=== PATIENT | male | born 1970 | race African-American/Black ===

== ENCOUNTER 2018-02-15 08:17 | Inpatient (IN) | payer OTHER ==
[2018-02-15 08:59] LABS: VENOUS BASE EXCESS -16.2 (-2.0-2.0); VENOUS HCO3 9.1 MEQ/L (23.0-27.0); VENOUS O2 SATURATION 98.2 % (60.0-80.0); VENOUS PARTIAL PRESSURE CO2 22.8 mmHg (38.0-50.0); VENOUS PARTIAL PRESSURE O2 129.9 mmHg (30.0-50.0); VENOUS PH 7.219 UNITS (7.330-7.430); VENOUS STANDARD HCO3 12.9 MEQ/L; VENOUS TOTAL CO2 9.8 MEQ/L (24.0-28.0)
[2018-02-15 09:05] LABS: BASO # 0.1 10^3/uL (0.0-0.2); BASO % 0.3 % (0.0-1.0); HEMATOCRIT 52.8 % (42.0-52.0); HEMOGLOBIN 17.5 g/dl (13.5-17.5); IMMATURE GRANULOCYTE % 1.2 % (0-3.0); LYMPH # 2.2 10^3/uL (1.5-4.5); LYMPH % 9.9 % (24.0-44.0); MEAN CORPUSCULAR HEMOGLOBIN 29.9 pg (27.0-33.0); MEAN CORPUSCULAR HGB CONC 33.1 g/dl (32.0-36.5); MEAN CORPUSCULAR VOLUME 90.1 fl (80.0-96.0); MONO # 1.3 10^3/uL (0.0-0.8); NEUTROPHILS % 82.6 % (36.0-66.0); PLATELET COUNT, AUTOMATED 341 10^3/uL (150-450); RED BLOOD COUNT 5.86 10^6/uL (4.30-6.10); RED CELL DISTRIBUTION WIDTH 13.7 % (11.5-14.5); WHITE BLOOD COUNT 21.8 10^3/uL (4.0-10.0)
[2018-02-15 09:19] LABS: ESTIMATED AVERAGE GLUCOSE 306 MG/DL (60-110); HEMOGLOBIN A1c 12.3 %
[2018-02-15 09:48] LABS: ANION GAP 27 MEQ/L (8-16); BLOOD UREA NITROGEN 30 MG/DL (7-18); CALCIUM LEVEL 10.6 MG/DL (8.5-10.1); CARBON DIOXIDE LEVEL 10 MEQ/L (21-32); CHLORIDE LEVEL 103 MEQ/L (98-107); CREATININE FOR GFR 1.97 MG/DL (0.70-1.30); GLOMERULAR FILTRATION RATE 39.2 (>60); POTASSIUM SERUM 5.3 MEQ/L (3.5-5.1); SODIUM LEVEL 140 MEQ/L (136-145)
[2018-02-15 09:54] LABS: GLUCOSE, FASTING 646 MG/DL (70-100)
[2018-02-15] MEDS ORDERED: INSULIN IV RATE CHANGE DOCUMENTATION ML/HR XX (10:15)
[2018-02-15] MEDS: NS 1,000 ML IV (10:33)
[2018-02-15] MEDS: HumuLIN R (REGULAR) INSULIN (NovoLIN R) **100U/ML** PER UNIT IV (10:35)
[2018-02-15] MEDS: INSULIN HUMAN REGULAR 100 UNITS in NS 99 ML IV ×2 (10:36→12:56)
[2018-02-15 11:29] LABS: ALBUMIN 4.1 GM/DL (3.2-5.2); ALBUMIN/GLOBULIN RATIO 0.85 (1.00-1.93); ALKALINE PHOSPHATASE 148 U/L (45-117); ALT/SGPT 21 U/L (12-78); AST/SGOT 8 U/L (7-37); BILIRUBIN,DIRECT 0.1 MG/DL (0.0-0.2); BILIRUBIN,TOTAL 0.5 MG/DL (0.2-1.0); TOTAL PROTEIN 8.9 GM/DL (6.4-8.2)
[2018-02-15] MEDS ORDERED: ACETAMINOPHEN TAB 650MG DOSE (2X325MG) PO (11:45)
[2018-02-15] MEDS ORDERED: MORPHINE 4 MG/ML 1ML VIAL/SYRINGE (J2270) IV (11:45)
[2018-02-15 11:48] LABS: BEDSIDE GLUCOSE 518 MG/DL (70-105)
[2018-02-15 12:28] LABS: BEDSIDE GLUCOSE > 600 MG/DL (70-105)
[2018-02-15 12:43] LABS: BEDSIDE GLUCOSE 447 MG/DL (70-105)
[2018-02-15 12:48] LABS: CK-MB VALUE MASS < 1.0 NG/ML (<3.6); CPK CREATINE PHOSPHOKINASE 122 U/L (39-308); MAGNESIUM LEVEL 3.4 MG/DL (1.8-2.4); MB/CK RELATIVE INDEX 0.82 (< OR =4); TROPONIN I < 0.02 NG/ML (< 0.10)
[2018-02-15] MEDS: INSULIN IV RATE CHANGE DOCUMENTATION ML/HR XX ×4 (12:57→22:01)
[2018-02-15] MEDS: NS 0.45% 1,000 ML IV ×3 (13:02→23:00)
[2018-02-15 13:53] LABS: BEDSIDE GLUCOSE 428 MG/DL (70-105)
[2018-02-15 14:16] LABS: BASO # 0.1 10^3/uL (0.0-0.2); BASO % 0.3 % (0.0-1.0); HEMATOCRIT 54.6 % (42.0-52.0); HEMOGLOBIN 18.1 g/dl (13.5-17.5); IMMATURE GRANULOCYTE % 1.4 % (0-3.0); LYMPH # 3.3 10^3/uL (1.5-4.5); LYMPH % 12.8 % (24.0-44.0); MEAN CORPUSCULAR HEMOGLOBIN 29.8 pg (27.0-33.0); MEAN CORPUSCULAR HGB CONC 33.2 g/dl (32.0-36.5); MEAN CORPUSCULAR VOLUME 89.8 fl (80.0-96.0); MONO % 9.1 % (0.0-5.0); NEUTROPHILS # 19.4 10^3/uL (1.8-7.7); NEUTROPHILS % 76.4 % (36.0-66.0); PLATELET COUNT, AUTOMATED 316 10^3/uL (150-450); RED BLOOD COUNT 6.08 10^6/uL (4.30-6.10); RED CELL DISTRIBUTION WIDTH 13.9 % (11.5-14.5); WHITE BLOOD COUNT 25.4 10^3/uL (4.0-10.0)
[2018-02-15 14:40] LABS: MONO # 2.3 10^3/uL (0.0-0.8)
[2018-02-15 14:41] LABS: POSITIVE DIFF POS FLAG
[2018-02-15 15:03] LABS: KETONE, URINE AUTO RFX 2+ mg/dL (NEGATIVE); LEUKOCYTE ESTERASE UR AUTO RFX NEGATIVE (NEGATIVE); NITRITE, URINE AUTO RFX NEGATIVE (NEGATIVE); RBC, URINE AUTO RFX 2 /HPF (0-3); SQUAM EPITHELIAL CELL UR AURFX 0 /HPF (0-6); WBC, URINE AUTO RFX 1 /HPF (0-3)
[2018-02-15 15:04] LABS: ALBUMIN 3.7 GM/DL (3.2-5.2); ALBUMIN/GLOBULIN RATIO 0.76 (1.00-1.93); ALKALINE PHOSPHATASE 144 U/L (45-117); ALT/SGPT 18 U/L (12-78); ANION GAP 19 MEQ/L (8-16); AST/SGOT 6 U/L (7-37); BILIRUBIN,TOTAL 0.5 MG/DL (0.2-1.0); BLOOD UREA NITROGEN 33 MG/DL (7-18); CALCIUM LEVEL 9.9 MG/DL (8.5-10.1); CARBON DIOXIDE LEVEL 15 MEQ/L (21-32); CHLORIDE LEVEL 113 MEQ/L (98-107); CREATININE FOR GFR 1.79 MG/DL (0.70-1.30); GLUCOSE, FASTING 404 MG/DL (70-100); POTASSIUM SERUM 4.4 MEQ/L (3.5-5.1); SODIUM LEVEL 147 MEQ/L (136-145); TOTAL PROTEIN 8.6 GM/DL (6.4-8.2)
[2018-02-15 15:05] LABS: ACETONE/KETONE > 46.00 MG/DL (<2.81)
[2018-02-15] MEDS: HEPARIN SOD (PORCINE) 5000 UNITS/ML VIAL SC ×2 (15:09→20:22)
[2018-02-15] MEDS: PANTOPRAZOLE 40MG INJ (PROTONIX) (C9113) IV (15:14)
[2018-02-15 15:42] LABS: ANION GAP 20 MEQ/L (8-16); BLOOD UREA NITROGEN 32 MG/DL (7-18); CALCIUM LEVEL 9.5 MG/DL (8.5-10.1); CARBON DIOXIDE LEVEL 14 MEQ/L (21-32); CHLORIDE LEVEL 117 MEQ/L (98-107); CREATININE FOR GFR 1.55 MG/DL (0.70-1.30); GLOMERULAR FILTRATION RATE > 60.0 (>60); GLUCOSE, FASTING 359 MG/DL (70-100); POTASSIUM SERUM 4.2 MEQ/L (3.5-5.1); SODIUM LEVEL 151 MEQ/L (136-145)
[2018-02-15 15:43] LABS: C REACTIVE PROTEIN QUANTITATIV 0.46 MG/DL (0.00-0.30)
[2018-02-15 16:05] LABS: ERYTHROCYTE SEDIMENTATION RATE 8 mm/hr (0-15)
[2018-02-15 17:20] LABS: VENOUS BASE EXCESS -9.9 (-2.0-2.0); VENOUS HCO3 18.2 MEQ/L (23.0-27.0); VENOUS O2 SATURATION 88.1 % (60.0-80.0); VENOUS PARTIAL PRESSURE CO2 47.3 mmHg (38.0-50.0); VENOUS PARTIAL PRESSURE O2 62.4 mmHg (30.0-50.0); VENOUS PH 7.202 UNITS (7.330-7.430); VENOUS STANDARD HCO3 16.6 MEQ/L; VENOUS TOTAL CO2 19.6 MEQ/L (24.0-28.0)
[2018-02-15 17:36] LABS: ANION GAP 15 MEQ/L (8-16); BLOOD UREA NITROGEN 30 MG/DL (7-18); CALCIUM LEVEL 9.5 MG/DL (8.5-10.1); CARBON DIOXIDE LEVEL 17 MEQ/L (21-32); CHLORIDE LEVEL 116 MEQ/L (98-107); CREATININE FOR GFR 1.76 MG/DL (0.70-1.30); GLOMERULAR FILTRATION RATE 54.1 (>60); GLUCOSE, FASTING 328 MG/DL (70-100); POTASSIUM SERUM 4.7 MEQ/L (3.5-5.1); SODIUM LEVEL 148 MEQ/L (136-145)
[2018-02-15] MEDS: KCL 20MEQ IN 0.45NS 1000ML 1,000 ML IV ×2 (18:53→21:20)
[2018-02-15 19:49] LABS: ANION GAP 17 MEQ/L (8-16); BLOOD UREA NITROGEN 29 MG/DL (7-18); CALCIUM LEVEL 9.7 MG/DL (8.5-10.1); CARBON DIOXIDE LEVEL 17 MEQ/L (21-32); CHLORIDE LEVEL 113 MEQ/L (98-107); CREATININE FOR GFR 1.71 MG/DL (0.70-1.30); GLOMERULAR FILTRATION RATE 55.9 (>60); GLUCOSE, FASTING 313 MG/DL (70-100); POTASSIUM SERUM 4.3 MEQ/L (3.5-5.1); SODIUM LEVEL 147 MEQ/L (136-145)
[2018-02-15] MEDS: ONDANSETRON 4MG/2ML VIAL (J2405) IV (20:18)
[2018-02-15 21:48] LABS: ANION GAP 11 MEQ/L (8-16); BLOOD UREA NITROGEN 28 MG/DL (7-18); CALCIUM LEVEL 9.1 MG/DL (8.5-10.1); CARBON DIOXIDE LEVEL 16 MEQ/L (21-32); CHLORIDE LEVEL 117 MEQ/L (98-107); CREATININE FOR GFR 1.51 MG/DL (0.70-1.30); GLOMERULAR FILTRATION RATE > 60.0 (>60); GLUCOSE, FASTING 293 MG/DL (70-100); POTASSIUM SERUM 5.5 MEQ/L (3.5-5.1); SODIUM LEVEL 144 MEQ/L (136-145)
[2018-02-15 21:54] LABS: BEDSIDE GLUCOSE 296 MG/DL (70-105)
[2018-02-15 21:54] LABS: BEDSIDE GLUCOSE 296 MG/DL (70-105)
[2018-02-16 00:05] LABS: ANION GAP 14 MEQ/L (8-16); BLOOD UREA NITROGEN 29 MG/DL (7-18); CALCIUM LEVEL 9.5 MG/DL (8.5-10.1); CARBON DIOXIDE LEVEL 20 MEQ/L (21-32); CHLORIDE LEVEL 115 MEQ/L (98-107); CREATININE FOR GFR 1.52 MG/DL (0.70-1.30); GLOMERULAR FILTRATION RATE > 60.0 (>60); GLUCOSE, FASTING 298 MG/DL (70-100); POTASSIUM SERUM 4.6 MEQ/L (3.5-5.1); SODIUM LEVEL 149 MEQ/L (136-145)
[2018-02-16] MEDS: KCL 10MEQ IN D5/0.45NS 1000ML 1,000 ML IV ×2 (00:07→03:27)
[2018-02-16 00:08] LABS: BEDSIDE GLUCOSE 248 MG/DL (70-105)
[2018-02-16 01:43] LABS: ANION GAP 13 MEQ/L (8-16); BLOOD UREA NITROGEN 26 MG/DL (7-18); CALCIUM LEVEL 9.2 MG/DL (8.5-10.1); CARBON DIOXIDE LEVEL 20 MEQ/L (21-32); CHLORIDE LEVEL 117 MEQ/L (98-107); CREATININE FOR GFR 1.35 MG/DL (0.70-1.30); GLOMERULAR FILTRATION RATE > 60.0 (>60); GLUCOSE, FASTING 258 MG/DL (70-100); POTASSIUM SERUM 4.1 MEQ/L (3.5-5.1); SODIUM LEVEL 150 MEQ/L (136-145)
[2018-02-16 02:14] LABS: BEDSIDE GLUCOSE 301 MG/DL (70-105)
[2018-02-16 02:14] LABS: BEDSIDE GLUCOSE 282 MG/DL (70-105)
[2018-02-16 02:14] LABS: BEDSIDE GLUCOSE 291 MG/DL (70-105)
[2018-02-16 02:14] LABS: BEDSIDE GLUCOSE 347 MG/DL (70-105)
[2018-02-16 02:14] LABS: BEDSIDE GLUCOSE 378 MG/DL (70-105)
[2018-02-16 03:34] LABS: ANION GAP 13 MEQ/L (8-16); BLOOD UREA NITROGEN 24 MG/DL (7-18); CALCIUM LEVEL 8.8 MG/DL (8.5-10.1); CARBON DIOXIDE LEVEL 20 MEQ/L (21-32); CHLORIDE LEVEL 117 MEQ/L (98-107); GLOMERULAR FILTRATION RATE > 60.0 (>60); GLUCOSE, FASTING 293 MG/DL (70-100); POTASSIUM SERUM 4.3 MEQ/L (3.5-5.1); SODIUM LEVEL 150 MEQ/L (136-145)
[2018-02-16 03:37] LABS: BEDSIDE GLUCOSE 254 MG/DL (70-105)
[2018-02-16 05:26] LABS: MEAN CORPUSCULAR HEMOGLOBIN 29.4 pg (27.0-33.0); MEAN CORPUSCULAR HGB CONC 32.9 g/dl (32.0-36.5); MEAN CORPUSCULAR VOLUME 89.5 fl (80.0-96.0); PLATELET COUNT, AUTOMATED 268 10^3/uL (150-450); RED BLOOD COUNT 5.03 10^6/uL (4.30-6.10); WHITE BLOOD COUNT 18.8 10^3/uL (4.0-10.0)
[2018-02-16 05:35] LABS: HEMOGLOBIN 14.8 g/dl (13.5-17.5)
[2018-02-16] MEDS: HEPARIN SOD (PORCINE) 5000 UNITS/ML VIAL SC ×3 (06:00→20:37)
[2018-02-16 06:20] LABS: BEDSIDE GLUCOSE 255 MG/DL (70-105)
[2018-02-16 06:20] LABS: BEDSIDE GLUCOSE 316 MG/DL (70-105)
[2018-02-16 06:20] LABS: BEDSIDE GLUCOSE 305 MG/DL (70-105)
[2018-02-16 06:20] LABS: BEDSIDE GLUCOSE 264 MG/DL (70-105)
[2018-02-16] MEDS: INSULIN IV RATE CHANGE DOCUMENTATION ML/HR XX ×3 (06:21→10:05)
[2018-02-16 06:40] LABS: ANION GAP 8 MEQ/L (8-16); BLOOD UREA NITROGEN 23 MG/DL (7-18); CALCIUM LEVEL 8.7 MG/DL (8.5-10.1); CARBON DIOXIDE LEVEL 25 MEQ/L (21-32); CHLORIDE LEVEL 116 MEQ/L (98-107); CREATININE FOR GFR 1.42 MG/DL (0.70-1.30); GLOMERULAR FILTRATION RATE > 60.0 (>60); GLUCOSE, FASTING 301 MG/DL (70-100); MAGNESIUM LEVEL 2.8 MG/DL (1.8-2.4); POTASSIUM SERUM 3.9 MEQ/L (3.5-5.1); SODIUM LEVEL 149 MEQ/L (136-145)
[2018-02-16] MEDS: PANTOPRAZOLE 40MG INJ (PROTONIX) (C9113) IV (08:56)
[2018-02-16] MEDS: KCL 20MEQ IN 0.45NS 1000ML 1,000 ML IV ×3 (09:03→20:38)
[2018-02-16 09:35] LABS: BEDSIDE GLUCOSE 338 MG/DL (70-105)
[2018-02-16 09:35] LABS: BEDSIDE GLUCOSE 283 MG/DL (70-105)
[2018-02-16 09:37] LABS: BEDSIDE GLUCOSE 261 MG/DL (70-105)
[2018-02-16 10:05] LABS: BEDSIDE GLUCOSE 282 MG/DL (70-105)
[2018-02-16 10:45] LABS: ERYTHROCYTE SEDIMENTATION RATE 34 mm/hr (0-15)
[2018-02-16] MEDS: INSULIN HUMAN REGULAR 100 UNITS in NS 99 ML IV ×2 (10:50→10:51)
[2018-02-16 11:03] LABS: ANION GAP 11 MEQ/L (8-16); BLOOD UREA NITROGEN 21 MG/DL (7-18); C REACTIVE PROTEIN QUANTITATIV 2.06 MG/DL (0.00-0.30); CALCIUM LEVEL 8.7 MG/DL (8.5-10.1); CARBON DIOXIDE LEVEL 24 MEQ/L (21-32); CHLORIDE LEVEL 114 MEQ/L (98-107); CREATININE FOR GFR 1.18 MG/DL (0.70-1.30); GLOMERULAR FILTRATION RATE > 60.0 (>60); GLUCOSE, FASTING 297 MG/DL (70-100); POTASSIUM SERUM 4.3 MEQ/L (3.5-5.1); SODIUM LEVEL 149 MEQ/L (136-145)
[2018-02-16 11:05] LABS: BEDSIDE GLUCOSE 258 MG/DL (70-105)
[2018-02-16 13:03] LABS: BEDSIDE GLUCOSE 231 MG/DL (70-105)
[2018-02-16 13:15] LABS: ANION GAP 9 MEQ/L (8-16); BLOOD UREA NITROGEN 18 MG/DL (7-18); CALCIUM LEVEL 8.4 MG/DL (8.5-10.1); CARBON DIOXIDE LEVEL 23 MEQ/L (21-32); CHLORIDE LEVEL 115 MEQ/L (98-107); CREATININE FOR GFR 1.07 MG/DL (0.70-1.30); GLOMERULAR FILTRATION RATE > 60.0 (>60); GLUCOSE, FASTING 234 MG/DL (70-100); SODIUM LEVEL 147 MEQ/L (136-145)
[2018-02-16 14:13] LABS: BEDSIDE GLUCOSE 232 MG/DL (70-105)
[2018-02-16 15:11] LABS: BEDSIDE GLUCOSE 228 MG/DL (70-105)
[2018-02-16 15:54] LABS: ANION GAP 8 MEQ/L (8-16); BLOOD UREA NITROGEN 18 MG/DL (7-18); CALCIUM LEVEL 8.8 MG/DL (8.5-10.1); CARBON DIOXIDE LEVEL 25 MEQ/L (21-32); CHLORIDE LEVEL 116 MEQ/L (98-107); CREATININE FOR GFR 1.17 MG/DL (0.70-1.30); GLOMERULAR FILTRATION RATE > 60.0 (>60); GLUCOSE, FASTING 201 MG/DL (70-100); SODIUM LEVEL 149 MEQ/L (136-145)
[2018-02-16 16:10] LABS: BEDSIDE GLUCOSE 222 MG/DL (70-105)
[2018-02-16] MEDS ORDERED: DEXTROSE 50% 50 ML SYRINGE IV (17:00)
[2018-02-16] MEDS ORDERED: GLUCAGON FOR INJ 1 MG VIAL (J1610) SC (17:00)
[2018-02-16] MEDS ORDERED: GLUCOSE 4 GM CHEW TABLET PO (17:00)
[2018-02-16 17:16] LABS: BEDSIDE GLUCOSE 182 MG/DL (70-105)
[2018-02-16] MEDS: HumaLOG INSULIN (NovoLOG) PER UNIT SC ×2 (17:30→20:37)
[2018-02-16] MEDS: CEPHALEXIN 500 MG CAP PO ×2 (17:38→23:49)
[2018-02-16] MEDS: LEVEMIR (INSULIN DETEMIR) 1 UNITS/0.01ML SC (17:39)
[2018-02-16 18:15] LABS: BEDSIDE GLUCOSE 237 MG/DL (70-105)
[2018-02-16 19:20] LABS: ANION GAP 10 MEQ/L (8-16); BLOOD UREA NITROGEN 17 MG/DL (7-18); CALCIUM LEVEL 8.8 MG/DL (8.5-10.1); CARBON DIOXIDE LEVEL 23 MEQ/L (21-32); CHLORIDE LEVEL 115 MEQ/L (98-107); CREATININE FOR GFR 1.02 MG/DL (0.70-1.30); GLOMERULAR FILTRATION RATE > 60.0 (>60); GLUCOSE, FASTING 192 MG/DL (70-100); POTASSIUM SERUM 4.1 MEQ/L (3.5-5.1); SODIUM LEVEL 148 MEQ/L (136-145)
[2018-02-16 20:33] LABS: BEDSIDE GLUCOSE 320 MG/DL (70-105)
[2018-02-16] MEDS: NYSTATIN 500,000 U/5 ML SUSP UDC SS ×2 (20:37→23:49)
[2018-02-16] MEDS ORDERED: LEVEMIR (INSULIN DETEMIR) 1 UNITS/0.01ML SC (21:00)
[2018-02-16 22:11] LABS: ANION GAP 10 MEQ/L (8-16); BLOOD UREA NITROGEN 15 MG/DL (7-18); CALCIUM LEVEL 8.7 MG/DL (8.5-10.1); CARBON DIOXIDE LEVEL 21 MEQ/L (21-32); CHLORIDE LEVEL 113 MEQ/L (98-107); CREATININE FOR GFR 1.07 MG/DL (0.70-1.30); GLOMERULAR FILTRATION RATE > 60.0 (>60); GLUCOSE, FASTING 297 MG/DL (70-100); POTASSIUM SERUM 4.5 MEQ/L (3.5-5.1); SODIUM LEVEL 144 MEQ/L (136-145)
[2018-02-17] MEDS: CEPHALEXIN 500 MG CAP PO ×3 (06:19→17:52)
[2018-02-17] MEDS: NYSTATIN 500,000 U/5 ML SUSP UDC SS ×3 (06:19→17:52)
[2018-02-17] MEDS: HEPARIN SOD (PORCINE) 5000 UNITS/ML VIAL SC ×3 (06:19→21:19)
[2018-02-17 07:18] LABS: HEMATOCRIT 41.2 % (42.0-52.0); HEMOGLOBIN 13.6 g/dl (13.5-17.5); MEAN CORPUSCULAR HEMOGLOBIN 29.8 pg (27.0-33.0); MEAN CORPUSCULAR VOLUME 90.2 fl (80.0-96.0); PLATELET COUNT, AUTOMATED 194 10^3/uL (150-450); RED BLOOD COUNT 4.57 10^6/uL (4.30-6.10); RED CELL DISTRIBUTION WIDTH 14.1 % (11.5-14.5); WHITE BLOOD COUNT 12.4 10^3/uL (4.0-10.0)
[2018-02-17 07:37] LABS: ANION GAP 13 MEQ/L (8-16); BLOOD UREA NITROGEN 14 MG/DL (7-18); CALCIUM LEVEL 8.8 MG/DL (8.5-10.1); CARBON DIOXIDE LEVEL 20 MEQ/L (21-32); CHLORIDE LEVEL 112 MEQ/L (98-107); CREATININE FOR GFR 0.96 MG/DL (0.70-1.30); GLOMERULAR FILTRATION RATE > 60.0 (>60); GLUCOSE, FASTING 229 MG/DL (70-100); MAGNESIUM LEVEL 2.4 MG/DL (1.8-2.4); POTASSIUM SERUM 3.9 MEQ/L (3.5-5.1); SODIUM LEVEL 145 MEQ/L (136-145)
[2018-02-17] MEDS: PANTOPRAZOLE 40MG INJ (PROTONIX) (C9113) IV (08:15)
[2018-02-17] MEDS: LEVEMIR (INSULIN DETEMIR) 1 UNITS/0.01ML SC ×2 (08:16→21:20)
[2018-02-17] MEDS: HumaLOG INSULIN (NovoLOG) PER UNIT SC ×4 (08:16→21:21)
[2018-02-17 11:34] LABS: BEDSIDE GLUCOSE 262 MG/DL (70-105)
[2018-02-17 11:46] LABS: BEDSIDE GLUCOSE 327 MG/DL (70-105)
[2018-02-17] MEDS: NS 0.45% 1,000 ML IV ×2 (15:42→17:54)
[2018-02-17 16:39] LABS: BEDSIDE GLUCOSE 319 MG/DL (70-105)
[2018-02-17 20:20] LABS: BEDSIDE GLUCOSE 300 MG/DL (70-105)
[2018-02-18] MEDS: CEPHALEXIN 500 MG CAP PO ×5 (00:18→23:54)
[2018-02-18] MEDS: NYSTATIN 500,000 U/5 ML SUSP UDC SS ×5 (00:19→23:54)
[2018-02-18] MEDS: HEPARIN SOD (PORCINE) 5000 UNITS/ML VIAL SC ×3 (06:14→21:49)
[2018-02-18 06:52] LABS: HEMATOCRIT 35.3 % (42.0-52.0); HEMOGLOBIN 11.7 g/dl (13.5-17.5); MEAN CORPUSCULAR HEMOGLOBIN 29.5 pg (27.0-33.0); MEAN CORPUSCULAR HGB CONC 33.1 g/dl (32.0-36.5); MEAN CORPUSCULAR VOLUME 89.1 fl (80.0-96.0); PLATELET COUNT, AUTOMATED 165 10^3/uL (150-450); RED BLOOD COUNT 3.96 10^6/uL (4.30-6.10); RED CELL DISTRIBUTION WIDTH 13.4 % (11.5-14.5); WHITE BLOOD COUNT 9.5 10^3/uL (4.0-10.0)
[2018-02-18 07:11] LABS: ANION GAP 9 MEQ/L (8-16); BLOOD UREA NITROGEN 9 MG/DL (7-18); CALCIUM LEVEL 8.7 MG/DL (8.5-10.1); CARBON DIOXIDE LEVEL 27 MEQ/L (21-32); CHLORIDE LEVEL 105 MEQ/L (98-107); CREATININE FOR GFR 0.79 MG/DL (0.70-1.30); GLOMERULAR FILTRATION RATE > 60.0 (>60); GLUCOSE, FASTING 191 MG/DL (70-100); MAGNESIUM LEVEL 2.3 MG/DL (1.8-2.4); POTASSIUM SERUM 3.7 MEQ/L (3.5-5.1); SODIUM LEVEL 141 MEQ/L (136-145)
[2018-02-18] MEDS: PANTOPRAZOLE 40MG INJ (PROTONIX) (C9113) IV (08:36)
[2018-02-18] MEDS: HumaLOG INSULIN (NovoLOG) PER UNIT SC ×4 (08:36→21:49)
[2018-02-18] MEDS: LEVEMIR (INSULIN DETEMIR) 1 UNITS/0.01ML SC ×2 (08:36→21:49)
[2018-02-18 11:35] LABS: BEDSIDE GLUCOSE 279 MG/DL (70-105)
[2018-02-18] MEDS: MIRALAX *UNIT DOSE* 17GM PACKET PO ×2 (16:56→21:00)
[2018-02-18 20:05] LABS: BEDSIDE GLUCOSE 351 MG/DL (70-105)
[2018-02-18] MEDS: DOCUSATE SODIUM 100 MG CAP PO (21:00)
[2018-02-18 21:29] LABS: BEDSIDE GLUCOSE 405 MG/DL (70-105)
[2018-02-18] MEDS ORDERED: HEPARIN SOD (PORCINE) 5000 UNITS/ML VIAL As Ordered (21:37)
[2018-02-19] MEDS: NYSTATIN 500,000 U/5 ML SUSP UDC SS ×4 (05:25→23:08)
[2018-02-19] MEDS: HEPARIN SOD (PORCINE) 5000 UNITS/ML VIAL SC ×3 (05:25→22:08)
[2018-02-19] MEDS: CEPHALEXIN 500 MG CAP PO ×4 (05:25→23:07)
[2018-02-19 06:55] LABS: HEMATOCRIT 32.7 % (42.0-52.0); HEMOGLOBIN 10.9 g/dl (13.5-17.5); MEAN CORPUSCULAR HEMOGLOBIN 29.5 pg (27.0-33.0); MEAN CORPUSCULAR HGB CONC 33.3 g/dl (32.0-36.5); MEAN CORPUSCULAR VOLUME 88.6 fl (80.0-96.0); PLATELET COUNT, AUTOMATED 152 10^3/uL (150-450); RED BLOOD COUNT 3.69 10^6/uL (4.30-6.10); RED CELL DISTRIBUTION WIDTH 13.2 % (11.5-14.5); WHITE BLOOD COUNT 9.1 10^3/uL (4.0-10.0)
[2018-02-19 07:08] LABS: ANION GAP 12 MEQ/L (8-16); BLOOD UREA NITROGEN 12 MG/DL (7-18); CALCIUM LEVEL 8.5 MG/DL (8.5-10.1); CARBON DIOXIDE LEVEL 25 MEQ/L (21-32); CHLORIDE LEVEL 102 MEQ/L (98-107); GLOMERULAR FILTRATION RATE > 60.0 (>60); GLUCOSE, FASTING 232 MG/DL (70-100); MAGNESIUM LEVEL 2.4 MG/DL (1.8-2.4); POTASSIUM SERUM 3.9 MEQ/L (3.5-5.1); SODIUM LEVEL 139 MEQ/L (136-145)
[2018-02-19] MEDS: PANTOPRAZOLE 40MG INJ (PROTONIX) (C9113) IV (08:38)
[2018-02-19] MEDS: HumaLOG INSULIN (NovoLOG) PER UNIT SC ×4 (08:38→21:00)
[2018-02-19] MEDS: DOCUSATE SODIUM 100 MG CAP PO ×2 (08:39→22:08)
[2018-02-19] MEDS: LEVEMIR (INSULIN DETEMIR) 1 UNITS/0.01ML SC ×2 (08:39→22:08)
[2018-02-19] MEDS: MIRALAX *UNIT DOSE* 17GM PACKET PO ×2 (08:39→22:08)
[2018-02-19 17:02] LABS: BEDSIDE GLUCOSE 224 MG/DL (70-105)
[2018-02-19 17:02] LABS: BEDSIDE GLUCOSE 226 MG/DL (70-105)
[2018-02-19 20:20] LABS: BEDSIDE GLUCOSE 230 MG/DL (70-105)
[2018-02-20] MEDS: NYSTATIN 500,000 U/5 ML SUSP UDC SS (05:41)
[2018-02-20] MEDS: CEPHALEXIN 500 MG CAP PO (05:41)
[2018-02-20] MEDS: HEPARIN SOD (PORCINE) 5000 UNITS/ML VIAL SC (05:41)
[2018-02-20 07:45] LABS: HEMATOCRIT 33.4 % (42.0-52.0); HEMOGLOBIN 11.1 g/dl (13.5-17.5); MEAN CORPUSCULAR HEMOGLOBIN 29.4 pg (27.0-33.0); MEAN CORPUSCULAR HGB CONC 33.2 g/dl (32.0-36.5); MEAN CORPUSCULAR VOLUME 88.4 fl (80.0-96.0); PLATELET COUNT, AUTOMATED 172 10^3/uL (150-450); RED BLOOD COUNT 3.78 10^6/uL (4.30-6.10); RED CELL DISTRIBUTION WIDTH 13.2 % (11.5-14.5); WHITE BLOOD COUNT 9.1 10^3/uL (4.0-10.0)
[2018-02-20 08:11] LABS: ANION GAP 14 MEQ/L (8-16); BLOOD UREA NITROGEN 11 MG/DL (7-18); CALCIUM LEVEL 8.7 MG/DL (8.5-10.1); CARBON DIOXIDE LEVEL 23 MEQ/L (21-32); CHLORIDE LEVEL 101 MEQ/L (98-107); CREATININE FOR GFR 0.62 MG/DL (0.70-1.30); GLOMERULAR FILTRATION RATE > 60.0 (>60); GLUCOSE, FASTING 233 MG/DL (70-100); MAGNESIUM LEVEL 2.2 MG/DL (1.8-2.4); POTASSIUM SERUM 3.9 MEQ/L (3.5-5.1); SODIUM LEVEL 138 MEQ/L (136-145)
[2018-02-20] MEDS: LEVEMIR (INSULIN DETEMIR) 1 UNITS/0.01ML SC (08:36)
[2018-02-20] MEDS: PANTOPRAZOLE 40MG TAB (PROTONIX) PO (08:37)
[2018-02-20] MEDS: HumaLOG INSULIN (NovoLOG) PER UNIT SC (08:37)
[2018-02-20] MEDS: DOCUSATE SODIUM 100 MG CAP PO (08:37)
[2018-02-20] MEDS: MIRALAX *UNIT DOSE* 17GM PACKET PO (08:38)
== END 2018-02-20 10:05 | DRG 420 ==
LOC: M MS5PR 02-17 → M ED 08:17 → M ED INP 13:04 → M ICU 14:15
PROVIDERS: Internal Medicine
DX: E11.10 Type 2 diabetes mellitus with ketoacidosis without coma (principal); B37.0 Candidal stomatitis; J45.909 Unspecified asthma, uncomplicated; J02.0 Streptococcal pharyngitis; K59.00 Constipation, unspecified; K21.9 Gastro-esophageal reflux disease without esophagitis; Z87.891 Personal history of nicotine dependence; Z79.899 Other long term (current) drug therapy